=== PATIENT | female | born 1970 | race African-American/Black ===

== ENCOUNTER → 2016-06-12 | Outpatient (CLI) | payer OTHER ==
[2016-06-12 10:36] LABS: ALANINE AMINOTRANSFERASE 15 U/L (9-52); ASPARTATE AMINO TRANSFERASE 19 U/L (14-36)
== END ==
LOC: LAB 10:05
PROVIDERS: ATTEND Podiatrist Foot Surgery
DX: B35.1 Tinea unguium (principal)
CPT/HCPCS: 36415; 84450; 84460

== ENCOUNTER 2016-08-14 11:38 | Emergency (ER) | payer OTHER ==
[2016-08-14 12:42] LABS: ABSOLUTE BASOPHILS # (AUTO) 0.1 10^3/uL (0.0-0.2); ABSOLUTE EOSINOPHILS # (AUTO) 0.3 10^3/uL (0.0-0.6); ABSOLUTE LYMPHOCYTES (AUTO) 2.3 10^3/uL (0.5-4.7); ABSOLUTE MONOCYTES (AUTO) 0.8 10^3/uL (0.1-1.4); ABSOLUTE NEUT (AUTO) 5.7 10^3/uL (1.7-8.2); BASOPHILS % (AUTO) 0.9 % (0-2); EOSINOPHILS % (AUTO) 3.2 % (0-6); HEMATOCRIT 39.4 % (36.0-47.0); HEMOGLOBIN 12.6 g/dL (12.0-15.5); HGB HCT DIFFERENCE -1.6; LYMPHOCYTES % (AUTO) 25.2 % (13-45); MEAN CORPUSCULAR HEMOGLOBIN 26.8 pg (27.0-33.4); MEAN CORPUSCULAR HGB CONC 32.1 g/dL (32.0-36.0); MEAN CORPUSCULAR VOLUME 83 fl (80-97); MONOCYTES % (AUTO) 8.8 % (3-13); RED BLOOD COUNT 4.72 10^6/uL (3.72-5.28); RED CELL DISTRIBUTION WIDTH 14.5 % (11.5-14.0); SEGMENTED NEUTROPHILS % (AUTO) 61.9 % (42-78); WHITE BLOOD COUNT 9.3 10^3/uL (4.0-10.5)
[2016-08-14 13:08] LABS: ANION GAP 9 (5-19); BLOOD UREA NITROGEN 16 mg/dL (7-20); CALCIUM 9.2 mg/dL (8.4-10.2); CARBON DIOXIDE 22 mmol/L (22-30); CHLORIDE 111 mmol/L (98-107); CREATINE KINASE 88 U/L (30-135); CREATININE RESULT 0.68 mg/dL (0.52-1.25); GLUCOSE 80 mg/dL (75-110); POTASSIUM 4.2 mmol/L (3.6-5.0); SODIUM 142.2 mmol/L (137-145)
--- NOTE | 2016-08-14 13:11 | EKG REPORT ---
SEVERITY:- ABNORMAL ECG - SINUS RHYTHM SUPRAVENTRICULAR BIGEMINY MOBITZ II AV BLOCK : Confirmed by: Anjana Puentes MD 14-Aug-2016 13:10:18
--- NOTE | 2016-08-14 14:17 | ER Document Report ---
ED General - General Mode of Arrival: Medic Information source: Patient TRAVEL OUTSIDE OF THE [place] IN LAST 30 DAYS: No - HPI Patient complains to provider of: Palpitations Onset: Other - Approximately 3 weeks ago Onset/Duration: Gradual, Worse Associated symptoms: Sweating, Other - Lightheaded, dizzy Exacerbated by: Supine, Movement <CHANI HAWK - Last Filed: 08/14/16 15:47> <KANU SOMMERS - Last Filed: 08/14/16 21:21> - General Chief Complaint: Shortness Of Breath Stated Complaint: SHORTNESS OF BREATH Notes: Patient is a 46-year-old female presenting to the emergency department concerned of her heart racing with palpitations for the past 3 weeks, but acutely worse over the past few days. Patient was sent here from urgent care. Patient states that the palpitations become worse at night, and her heart rate becomes faster with movement. Patient admits to lightheadedness, diaphoresis, frequent weight gain/loss, and increase in hair falling out. Patient denies any pain or swelling in her legs. (CHANI HAWK) - Related Data Allergies/Adverse Reactions: No Known Allergies Allergy (Verified 07/18/12 13:45) Past Medical History - General Information source: Patient - Social History Smoking Status: Current Every Day Smoker Frequency of alcohol use: None Drug Abuse: None Family History: Reviewed & Not Pertinent - Past Medical History Cardiac Medical History: Reports: Hx Hypertension GI Medical History: Reports: Hx Gastroesophageal Reflux Disease Past Surgical History: Reports: Hx Cholecystectomy - Immunizations Hx Diphtheria, Pertussis, Tetanus Vaccination: Yes <CHANI HAKW - Last Filed: 08/14/16 15:47> Review of Systems - Review of Systems Constitutional: See HPI, Diaphoresis EENT: No symptoms reported Cardiovascular: See HPI, Palpitations, Heart racing, Dizziness, Lightheaded Respiratory: No symptoms reported Gastrointestinal: No symptoms reported Genitourinary: No symptoms reported Female Genitourinary: No symptoms reported Musculoskeletal: No symptoms reported Skin: No symptoms reported Hematologic/Lymphatic: No symptoms reported Neurological/Psychological: No symptoms reported <CHANI HAWK - Last Filed: 08/14/16 15:47> Physical Exam - General General appearance: Appears well, Alert - HEENT Head: Normocephalic, Atraumatic Eyes: Normal Pupils: PERRL - Respiratory Respiratory status: No respiratory distress Chest status: Nontender Breath sounds: Normal Chest palpation: Normal - Cardiovascular Rhythm: Regular Heart sounds: Normal auscultation Murmur: No - Abdominal Inspection: Normal Distension: No distension Bowel sounds: Normal Tenderness: Nontender Organomegaly: No organomegaly - Back Back: Normal, Nontender - Extremities General upper extremity: Normal inspection, Nontender General lower extremity: Normal inspection, Nontender - Neurological Neuro grossly intact: Yes Cognition: Normal Orientation: AAOx4 Ale Coma Scale Eye Opening: Spontaneous [place] Coma Scale Verbal: Oriented [place] Coma Scale Motor: Obeys Commands [place] Coma Scale Total: 15 Speech: Normal - Psychological Associated symptoms: Normal affect, Normal mood - Skin Skin Temperature: Warm Skin Moisture: Dry Skin Color: Normal <CHANI HAWK - Last Filed: 08/14/16 15:47> Course - Laboratory Result Diagrams: 08/14/16 11:58 08/14/16 11:58 <CHANI HAWK - Last Filed: 08/14/16 15:47> - Laboratory Result Diagrams: 08/14/16 11:58 08/14/16 11:58 <KANU SOMMERS - Last Filed: 08/14/16 21:21> - Re-evaluation Re-evalutation: 08/14/16 14:33 I personally performed the services described in the documentation, reviewed and edited the documentation which was dictated to my scribe in my presence, and it accurately records my words and actions. She presents emergency Department chief complaint of fluttering in her chest. She said it's been going on for several weeks with the past 3 days she's felt it thumping louder. She does not describe any pain or pressure it does not worsen when she exerts herself arrest. She said it occasionally makes her feel slightly short of breath. She has no cardiac history no thyroid disorder no diaphoresis no history of high blood pressure hyperlipidemia family history of blood pressure medication. She is a smoker but denies any history of heart or lung problems. On examination she is well-appearing nontoxic 100% O2 sat nonlabored breathing no respiratory distress EKG shows sinus rhythm with occasional PACs not irregular no ST elevation or depression. Negative acute TSH chest x-ray and vital signs. Discussed with patient at the bedside outpatient follow-up in 1-2 days call to her monitor no history of syncope and discussed specifically reasons for ED return sooner (KANU SOMMERS) - Vital Signs Vital signs: Temp Pulse Resp BP Pulse Ox 98.6 F 63 19 130/73 H 98 08/14/16 14:36 08/14/16 14:36 08/14/16 14:36 08/14/16 14:36 08/14/16 14:36 - Laboratory Laboratory results interpreted by me: 08/14/16 08/14/16 11:58 11:58 MCH 26.8 L RDW 14.5 H Chloride 111 H Discharge <CHANI HAWK - Last Filed: 08/14/16 15:47> <KANU SOMMERS - Last Filed: 08/14/16 21:21> - Discharge Clinical Impression: Palpitations Condition: Stable Disposition: HOME, SELF-CARE Additional Instructions: Palpitations Irregular or rapid heartbeat is called "palpitation." To diagnose the cause of palpitation, we have to "catch it in the act" with an EKG. Sinus Tachycardia: This is a rapid (but NORMAL) rhythm that can be due to fever, pain, anxiety, lack of sleep, over-exertion, or drugs. Cold medications, caffeine, and diet pills are particularly likely to cause tachycardia. Usually , all that's required is rest, reassurance, and avoiding caffeine, alcohol, nicotine, and unnecessary medicines. Paroxysmal Atrial Tachycardia (PAT): This abnormally rapid heartbeat is caused by a "short circuit" in the electrical system of the heart. It is not dangerous, unless other heart disease is present. These attacks of PAT may occur occasionally for years. Medication is available for treatment. Paroxysmal Atrial Fibrillation or Atrial Flutter: This is irregular electrical activity in the upper heart chamber. These abnormal rhythms often occur with valve disease or in hearts damaged by hardening of the arteries. These rhythms usually require further testing, for example a cardiac echo. Premature Beats: Extra beats occur more commonly after caffeine, nicotine , alcohol, cold pills, diet pills. Emotional stress or fatigue also provoke them. Extra beats are only dangerous when heart disease is present. They usually need no treatment. If they're frequent, or if evidence of heart disease develops, medication can be given to suppress them. If we were unable to "catch" the palpitations on EKG, you should try to get an EKG immediately if the symptoms begin again. Contact the physician at once if you develop persistent lightheadedness, shortness of breath, chest pain , or swelling of the ankles. Follow up with your primary care physician at the urgent care in 1-2 days return to ER for increasing worsening or new symptoms Forms: Return to Work Scribe Documentation - Scribe Written by Scribe:: Chani Hawk 08/14/2016 [id number] acting as scribe for :: Dr. Sommers <CHANI HAWK - Last Filed: 08/14/16 15:47>
[2016-08-14 14:40] VITALS: BP 130/73
== END 2016-08-14 15:00 | disposition home or self-care (01) ==
LOC: ER 11:38
DX: R00.2 Palpitations (principal); R06.02 Shortness of breath; R42 Dizziness and giddiness; F17.200 Nicotine dependence, unspecified, uncomplicated
CPT/HCPCS: 36415; 71010; 80048; 82550; 84443; 84484; 85025; 93005; 93010; 99285